=== PATIENT | female | born 1980 | race Caucasian/White ===

== ENCOUNTER 2024-12-02 10:04 | Emergency (ER) | payer OTHER, SELFPAY ==
[2024-12-02] VITALS (7 sets, daily range): BP systolic 120–138; BP diastolic 80–102; BMI 37.1
--- NOTE | 2024-12-02 10:24 | ED.GENMED ---
History of Present Illness
General
Chief Complaint: Abdominal Symptoms
Source: patient
Time Seen by Provider: 12/02/24 10:14
History of Present Illness
History of Present Illness:
44-year-old female presents to the emergency room complaining of nausea, vomiting and diarrhea. Patient developed the above symptoms about 3 days ago. Initially she had multiple episodes of vomiting and inability to tolerate p.o. After about 24
hours she developed diarrhea. She has had voluminous watery stool without blood or mucus. She has about 4 episodes in the past 24 hours. No real abdominal pain. She attempted to eat a little bit of something yesterday without getting much down.
Patient is diabetic. No fever. Patient traveled to [place] recently and stayed in a cabin.
Past History
Past History
ED Past Medical History: IDDM
ED Past Surgical History: Cholecystectomy and
Phy Exam
Physical Exam
Physical Exam:
General: Awake, Alert, Oriented X3. No acute distress.
Vitals: Tachycardic
Head: Atraumatic
Eyes: Pupils equal, EOMI
Throat: Airway intact, no exudates, significantly dry mucosa
Neck: Trachea midline
Lungs: Clear and equal b/l
Heart: Regular rate, no murmurs
Abd: Soft, Nontender, No pulsatile mass
Neuro: No focal
Skin: Warm, dry, no rash
Extremities: pulses equal b/l, no edema
Course
Orders/Labs/Results
Orders:
Orders
12/02/24 10:10
Electrocardiogram (*1) Urgent
Reason for Study: Tachycardia
EKG- Treatment ONCE
12/02/24 10:22
Cardiac Monitoring- Treatment ONCE
0.9% Sodium Chloride 1000 ml [Nss] 1,000 ml IV BOLUS
Ondansetron Injectable [Zofran] 4 mg IV NOW STA
12/02/24 10:47
B-Hydroxybutyrate Urgent
Complete Blood Count/With Diff Urgent
Comprehensive Metabolic Panel Urgent
Lipase Urgent
12/02/24 11:51
CDIFF [C difficile Antigen & Toxins] Urgent
MILDRED Source: Feces/Stool
Specimen Description:
Date Specimen was Collected: 12/02/24
Time Specimen was Collected: 11:49
Giardia/Cryptosporidium Ag Urgent
MILDRED Source: Feces/Stool
Specimen Description:
Date Specimen was Collected: 12/02/24
Time Specimen was Collected: 11:49
Stool Culture Urgent
MILDRED Source: Feces/Stool
Specimen Description:
Date Specimen was Collected: 12/02/24
Time Specimen was Collected: 11:49
12/02/24 13:13
0.9% Sodium Chloride 1000 ml [Nss] 1,000 ml IV BOLUS
12/02/24 14:52
Urinalysis Reflex To Culture Routine
Comment: RECOLLECT
Urine Microscopic Reflex Cult Routine
12/02/24 15:24
Potassium Chloride [KCl] 40 meq PO NOW STA
Abnormal Lab Results
12/02/24 12/02/24
10:47 14:52
WBC 11.1 H 10^3/uL
(4.8-10.8)
MCV 75.5 L fL
(81.0-99.0)
MCH 24.1 L pg
(27.0-31.0)
MCHC 32.0 L g/dL
(33.0-37.0)
RDW 15.2 H %
(11.5-14.5)
Abs Immat Gran (auto) 0.1 H 10^3/uL
(0-0.05)
Absolute Neuts (auto) 9.8 H 10^3/uL
(1.4-6.5)
Absolute Lymphs (auto) 0.7 L 10^3/uL
(1.2-3.4)
Neutrophils % 88.7 H %
(42.2-75.2)
Lymphocytes % 6.4 L %
(20.5-51.1)
Potassium 3.3 L mmol/L
(3.5-5.1)
Creatinine 0.5 L mg/dL
(0.6-1.0)
Glucose 251 H mg/dl
(70-99)
AST 197 H U/L
(14-36)
ALT 234 H U/L
(0-35)
Urine Ketones 1+ A
(Negative)
Ur Occult Blood Reflex 1+ A
(Negative)
Urine RBC 3-6 A /HPF
(0-2)
Urine Bacteria (Reflex) Few A
(Negative)
Urine Albumin (Reflex) 1+ A
(Neg - Trace)
B-Hydroxybutyrate 0.67 H mmol/L
(0.02-0.27)
12/02/24 10:47
12/02/24 10:47
Vital Signs
Initial and Last Documented VS:
Initial Vital Signs
Temp Pulse Resp BP Pulse Ox
97.6 F 146 18 137/99 98
12/02/24 10:07 12/02/24 10:07 12/02/24 10:07 12/02/24 10:07 12/02/24 10:07
Last Documented Vital Signs
Temp Pulse Resp BP Pulse Ox
98.2 F 114 18 120/89 98
12/02/24 15:00 12/02/24 15:30 12/02/24 15:30 12/02/24 15:00 12/02/24 15:30
MDM/Problems Addressed
Differential Diagnosis Includes:
Viral gastroenteritis, gastritis, DKA
MDM/Problems Addressed:
Patient presents with persistent nausea vomiting diarrhea. She feels better after IV hydration. She felt better after 1 L but significantly better after the second liter. She does not have a gap. Mild hypokalemia noted dose of K-Dur given. Her
abdominal exam is benign I do not believe there is any suggestion of an acute appendicitis or other inflammatory type process. Patient will be stable for discharge. She can use Imodium.
*Pulse Oximetry
SaO2: 98
Oxygen Mode of Delivery: Room air
Patient hypoxic: no
*EKG
Interpreted by ED Provider?: Yes
Heart Rate: 133
Rate: tachycardiac
Rhythm: sinus tachycardia
[employer]: normal axis
Interval: normal interval
QRS Pattern: normal QRS
Ischemia: non-specific ST changes
*[employer] Interpretation
Rate: tachycardiac
Interpretation: abnormal
Rhythm: sinus tachycardia
*Critical Care Note
Total Time (30-74mins, 75-104mins- exclusive of procedures): Not Applicable
ED Attending Note
-
Portions of this chart may have been created with voice recognition software.� Occasional wrong word or��sound alike� substitutions may have occurred due to the inherent limitations of voice recognition software.
Discharge Plan
Departure
Patient Disposition: Home (Routine Discharge)
Date of Disposition: 12/02/24
Time of Disposition: 15:24
Patient with high blood pressure during this ER visit?: No
Condition: Good
Discharge Problem:
Acute nausea with nonbilious vomiting, Diarrhea
Instructions: Viral gastroenteritis in adults, Abdominal Pain
Prescriptions:
New
ondansetron 4 mg tablet,disintegrating
4 mg PO Q8H PRN (Reason: nausea and vomiting) Qty: 20 0RF
No Action
Insulin Regular, Human
10 units SQ BID
Patient Comments:
pt states that she takes 10 in the am and 10 in the pm
NPH, Human Insulin Isophane
28 units SQ BID
Patient Comments:
pt states that she take 28 in the am and 32 in the pm
Vitamins
1 mg PO DAILY
Referrals:
Angeli Stacy, DO [Family Provider, Family Practice]
Interventions
Interventions:
*Risk Screen - Suicide Last Done: 12/02/24 10:07
*General Assessment Last Done: 12/02/24 10:07
*Neglect/Abuse Screening Last Done: 12/02/24 10:07
*ED- Fall Risk Assessment Last Done: 12/02/24 10:21
*ED COVID-19 Vaccine History Last Done: 12/02/24 10:54
*Nursing Disposition Last Done: 12/02/24 15:40
BR-Ezdsox-Cjdjmniumu Assessment Last Done: 12/02/24 10:52
Discharge Date and Time
Discharge Date/Time: 12/02/24 15:52
Print Language: J[place]
[2024-12-02] MEDS: NSS 1000 IV ×2 (10:48→13:22)
[2024-12-02] MEDS: ZOFRAN 4 MG IV (10:48)
[2024-12-02 11:00] LABS: Hematocrit 38.8 % (37.0-47.0); Hemoglobin 12.4 g/dL (12.0-16.0); Mean Corp Hgb Conc. 32.0 g/dL (33.0-37.0); Mean Corpuscular Volume 75.5 fL (81.0-99.0); Nucleated Red Blood Cells % 0 %; Platelet Count 386 10^3/uL (130-400); Red Cell Dist. Width 15.2 % (11.5-14.5)
[2024-12-02 11:39] LABS: ALT (SGPT) 234 U/L (0-35); AST (SGOT) 197 U/L (14-36); Albumin 4.8 g/dl (3.5-5.0); Alkaline Phosphatase 111 U/L (38-126); Blood Urea Nitrogen 16 mg/dl (7-17); Calcium 9.9 mg/dl (8.4-10.2); Carbon Dioxide 23 mmol/L (22-30); Chloride 103 mmol/L (98-107); Estimated Creatinine Clearance > 125 ml/min; Glucose 251 mg/dl (70-99); Lipase 66 U/L (23-300); Potassium 3.3 mmol/L (3.5-5.1); Sodium 139 mmol/L (135-145); Total Protein 7.9 g/dl (6.3-8.2); eGFR > 60.00
[2024-12-02 15:00] LABS: Urine Character Clear (Clear)
[2024-12-02 15:09] LABS: Urine Squamous Cell >30 /LPF (Few)
[2024-12-02 15:10] LABS: Urine White Cell 0-2 /HPF (0-5)
[2024-12-02] MEDS: KCL 40 MEQ PO (15:44)
== END 2024-12-02 15:52 | disposition home or self-care (01) ==
LOC: EMR 10:04
PROVIDERS: EMERGENCY PHYSICIAN Emergency Medicine; FAMILY PHYSICIAN Family Medicine
DX: R11.2 Nausea with vomiting, unspecified (principal); R19.7 Diarrhea, unspecified; E87.6 Hypokalemia; E11.9 Type 2 diabetes mellitus without complications; Z90.49 Acquired absence of other specified parts of digestive tract; Z79.4 Long term (current) use of insulin
CPT/HCPCS: 96374; 99284; 96361; 80053; 81003; 81015; 82010; 83690; 85025; 87045; 87046; 87324; 87328; 87329; 87427; 87449; 93005